=== PATIENT | female | born 1940 | race African-American/Black ===

== ENCOUNTER 2017-03-20 11:05 | Emergency (ER) | payer MEDICARE ==
[2017-03-20 12:33] VITALS: BP 144/61
--- NOTE | 2017-03-20 13:39 | Emergency Department Report ---
Chief Complaint: Nausea/Vomiting/Diarrhea Stated Complaint: VOMITING Time Seen by Provider: 03/20/17 13:38 - HPI History of Present Illness: Patient care with her son who is interpreting for her report patient with nausea and vomiting and diarrhea for the last 2 days. Patient primary care doctor is Dr. Lionel Bonilla and last seen 01/04/2017. Patient says she called this morning and Dr. BonillaYale to the emergency room. Patient has a history of diabetes, high blood pressure and acid reflux. She also has a history of high cholesterol and she is on medication. POC blood glucose is 122 she takes metformin twice daily for diabetes. She denies any pain. Denies any urinary burning frequency or urgency. Denies any back pain. She denies any blood in her stool or vomiting blood. - ROS Review of Systems: All systems are negative unless stated in HPI above - Exam Vital Signs: Vital Signs 03/20/17 12:30 Temperature 98.2 F Pulse Rate 62 Respiratory 18 Rate Blood Pressure 144/61 O2 Sat by Pulse 96 Oximetry Physical Exam: Gen.: This is a 76-year-old female well-nourished well-developed in no acute distress. He is nontoxic in appearance. Abdomen: Nontender to palpate in all quadrants, no guarding or rebound. No peritoneal signs. Normal bowel sounds in all quadrants. No CVA tenderness bilaterally MSE screening note: Focused history and physical exam performed. Due to findings the following was ordered:See MDM ED Medical Decision Making - Medical Decision Making MDM: Patient screened by provider in triage area. Appropriate protocol initiated and patient to be seen in main ED by Provider ED Disposition for MSE Condition: Stable Referrals: LIONEL BONILLA MD [Primary Care Provider] - 3-5 Days
[2017-03-20 14:33] LABS: Basophils % (Auto) 0.6 % (0.0-1.8); Hematocrit 39.8 % (30.3-42.9); Hemoglobin 13.1 gm/dl (10.1-14.3); Mean Corpuscular HGB Conc 33 % (30-34); Mean Corpuscular Hemoglobin 31 pg (28-32); Mean Corpuscular Volume 94 fl (79-97); Platelet Count 183 K/mm3 (140-440); Red Blood Count 4.24 M/mm3 (3.65-5.03); Red Cell Distribution Width 13.5 % (13.2-15.2); White Blood Count 3.6 K/mm3 (4.5-11.0)
[2017-03-20 15:04] LABS: Alanine Aminotransferase 19 units/L (7-56); Albumin 4.4 g/dL (3.9-5); Albumin/Globulin Ratio 1.2 %; Alkaline Phosphatase 78 units/L (35-129); Anion Gap 19 mmol/L; Blood Urea Nitrogen 9 mg/dL (7-17); Calcium 9.2 mg/dL (8.4-10.2); Carbon Dioxide 23 mmol/L (22-30); Chloride 94.1 mmol/L (98-107); Glucose 112 mg/dL (65-100); Lipase 31 units/L (13-60); Potassium 3.5 mmol/L (3.6-5.0); Sodium 133 mmol/L (137-145); Total Protein 8.2 g/dL (6.3-8.2)
[2017-03-20 15:16] LABS: Bacteria,Urine 1+ /HPF (Negative); Bilirubin,Urine NEG (Negative); Blood,Urine NEG (Negative); Ketones,Urine TR mg/dL (Negative); Leukocyte Esterase,Urine NEG (Negative); Mucus,Urine 1+ /HPF; Nitrite,Urine NEG (Negative); Urobilinogen,Urine < 2.0 mg/dL (<2.0); WBC,Urine < 1.0 /HPF (0.0-6.0)
== END 2017-03-20 18:40 | disposition left against medical advice (07) ==
LOC: ED 11:05
DX: R11.2 Nausea with vomiting, unspecified (principal); R19.7 Diarrhea, unspecified; Z53.21 Procedure and treatment not carried out due to patient leaving prior to being seen by health care provider
CPT/HCPCS: 36415; 80053; 81001; 82962; 83690; 85025

== ENCOUNTER 2018-11-22 13:31 | Inpatient (IN) | payer MEDICARE ==
[2018-11-22 14:21] LABS: Basophils # (Auto) 0.1 K/mm3 (0.0-0.1); Basophils % (Auto) 0.5 % (0.0-1.8); Eosinophils % (Auto) 0.1 % (0.0-4.3); Hemoglobin 14.1 gm/dl (10.1-14.3); Lymphocytes # (Auto) 0.9 K/mm3 (1.2-5.4); Lymphocytes % (Auto) 8.7 % (13.4-35.0); Mean Corpuscular HGB Conc 34 % (30-34); Mean Corpuscular Volume 94 fl (79-97); Monocytes # (Auto) 0.9 K/mm3 (0.0-0.8); Monocytes % (Auto) 8.8 % (0.0-7.3); Platelet Count 247 K/mm3 (140-440); Red Blood Count 4.37 M/mm3 (3.65-5.03); Red Cell Distribution Width 14.9 % (13.2-15.2)
[2018-11-22 14:33] LABS: BUN/Creatinine Ratio 16; Blood Urea Nitrogen 8 mg/dL (7-17); Calcium 9.1 mg/dL (8.4-10.2); Hemolysis Index 32
[2018-11-22 14:35] LABS: INR 0.88 (0.87-1.13)
--- NOTE | 2018-11-22 14:47 | Emergency Department Report ---
HPI - General Chief Complaint: Altered Mental Status Time Seen by Provider: 11/22/18 14:35 - HPI HPI: Room 22 The patient is a 78-year-old female presenting with chief complaint vomiting and fatigue. Family states today at noon the patient began exhibiting nausea vomiting complaining of fatigue. Family states patient also began complaining of shortness of breath. Family called EMS for transport to the ED for evaluation. Of note the patient recently flew back from [place] 2 days ago. The patient does not answer questions or follow commands even when spoken to in Turkish by family. Location: [See above] Duration: [See above] Quality: [See above] Severity: [See above] Modifying factors: [see above] Context: [see above] Mode of transportation: [not driving] ED Past Medical Hx - Past Medical History Previous Medical History?: Yes Hx Hypertension: Yes Hx Diabetes: Yes Hx GERD: Yes Additional medical history: high cholesterol - Surgical History Past Surgical History?: No - Family History Family history: no significant - Social History Smoking Status: Never Smoker Substance Use Type: None - Medications Home Medications: Home Medications Medication Instructions Recorded Confirmed Last Taken Type Atorvastatin Calcium [Lipitor] 20 mg PO DAILY 03/19/14 03/19/14 03/18/14 History Omeprazole [PriLOSEC] 20 mg PO DAILY 03/19/14 03/19/14 03/18/14 History Aspirin [Adult Aspirin] 81 mg PO QDAY 11/22/18 11/22/18 Unknown History Ginkgo Biloba 120 mg PO DAILY 11/22/18 11/22/18 Unknown History Telmisartan 40 mg PO QDAY 11/22/18 11/22/18 Unknown History hydroCHLOROthiazide [Hctz] 12.5 mg PO QAM 11/22/18 11/22/18 Unknown History metFORMIN [Glucophage] 500 mg PO QDAY 11/22/18 11/22/18 Unknown History ED Review of Systems ROS: Stated complaint: AMS Other details as noted in HPI Comment: Unobtainable due to pts medical conditions Physical Exam - Physical Exam Vital Signs: Vital Signs 11/22/18 14:30 Temperature 99.8 F H Pulse Rate 87 Respiratory 22 Rate Blood Pressure 160/67 O2 Sat by Pulse 98 Oximetry Physical Exam: GENERAL: The patient is well-developed well-nourished female lying on stretcher not appearing to be in acute distress. [] HEENT: Normocephalic. Atraumatic. Patient has moist mucous membranes. NECK: Supple. Trachea midline CHEST/LUNGS: Clear to auscultation. There is no respiratory distress noted. HEART/CARDIOVASCULAR: Regular. There is no tachycardia. There is no gallop rub or murmur. ABDOMEN: Abdomen is soft, nontender. Patient has normal bowel sounds. There is no abdominal distention. SKIN: There is no rash. There is no edema. There is no diaphoresis. NEURO: The patient is awake but does not answer questions or follow commands. The patient is not cooperative with neurologic exam. MUSCULOSKELETAL: There is no evidence of acute injury. ED Course Vital Signs 11/22/18 14:30 Temperature 99.8 F H Pulse Rate 87 Respiratory 22 Rate Blood Pressure 160/67 O2 Sat by Pulse 98 Oximetry ED Medical Decision Making - Lab Data Result diagrams: 11/22/18 14:01 11/22/18 14:07 Laboratory Tests 11/22/18 11/22/18 11/22/18 14:01 14:07 14:07 WBC 10.6 RBC 4.37 Hgb 14.1 Hct 41.0 MCV 94 MCH 32 MCHC 34 RDW 14.9 Plt Count 247 Lymph % (Auto) 8.7 L [place] % (Auto) 8.8 H Eos % (Auto) 0.1 Baso % (Auto) 0.5 Lymph # 0.9 L Payne # 0.9 H Eos # 0.0 Baso # 0.1 Seg Neutrophils % 81.9 H Seg Neutrophils # 8.6 H PT 12.5 INR 0.88 APTT 25.0 Thrombin Time D-Dimer Sodium 126 L Potassium 3.5 L Chloride 86.7 L Carbon Dioxide 23 Anion Gap 20 BUN 8 Creatinine 0.5 L Estimated GFR > 60 BUN/Creatinine Ratio 16 Glucose 186 H Calcium 9.1 Troponin T < 0.010 11/22/18 11/22/18 14:07 14:38 WBC RBC Hgb Hct MCV MCH MCHC RDW Plt Count Lymph % (Auto) [place] % (Auto) Eos % (Auto) Baso % (Auto) Lymph # Payne # Eos # Baso # Seg Neutrophils % Seg Neutrophils # PT INR APTT Thrombin Time 17.1 D-Dimer 315.42 H Sodium Potassium Chloride Carbon Dioxide Anion Gap BUN Creatinine Estimated GFR BUN/Creatinine Ratio Glucose Calcium Troponin T - EKG Data -: EKG Interpreted by [place] EKG shows normal: sinus rhythm Rate: normal - EKG Data When compared to previous EKG there are: previous EKG unavailable Interpretation: subendocardial ischemia (ST depression in leads 2, 3, aVF, V4, V5, V6) - Radiology Data Radiology results: report reviewed (CT head, CT chest), image reviewed (CT head, CT chest) [address] [address] Cat Scan Report Signed Patient: DIEGO FIEDLS MR#: [id number] : 1940 Acct:[id number] Age/Sex: 78 / F ADM Date: 11/22/18 Loc: ED Attending Dr: Ordering Physician: REBECCA MORALES MD Date of Service: 11/22/18 Procedure(s): CT head/brain wo con Accession Number(s): [id number] cc: REBECCA MORALES MD CT HEAD WITHOUT CONTRAST: HISTORY: Neurological deficit. TECHNIQUE: Sequential CT images without contrast. FINDINGS: Images obtained show bilateral prominence of the sulci and ventricles. There are no abnormal intra- or extra-axial blood or fluid collections. There are no focal masses or evidence of mass effect. The napoles white matter differentiation appears within normal limits. Regions of periventricular decreased attenuation are consistent with microangiopathic ischemic disease. The posterior fossa structures including the fourth ventricle, cerebellum, and brainstem appear normal. IMPRESSION: Evidence of atrophy and microangiopathic ischemic disease. No acute intracranial process noted. Transcribed By: TTR Dictated By: GÉNESIS LEWIS JR, MD Electronically Au thenticated By: GÉNESIS LEWIS JR, MD Signed Date/Time: 11/22/181446 DD/ 46 TD/TT: 11/22/181446 [address] [address] Cat Scan Report Signed Patient: DIEGO FIELDS MR#: [id number] : 1940 Acct:[id number] Age/Sex: 78 / F ADM Date: 11/22/18 Loc: ED Attending Dr: Ordering Physician: REBECCA MORALES MD Date of Service: 11/22/18 Procedure(s): CT angio chest Accession Number(s): [id number] cc: REBECCA MORALES MD PROCEDURE: CT ANGIO CHEST TECHNIQUE: Computerized tomographic angiography of the chest was performed after the IV injection of iodinated nonionic contrast including image processing. The image data was postprocessed using 2-dimensional multiplanar reformatted (MPR) and 3-dimensional (MIP and/or volume rendered) techniques. Automated exposure control, adjustment of mA and/or kV according to patient size, or iterative reconstruction dose optimization techniques were utilized. CT DOSE LENGTH PRODUCT: 508.8 mGycm HISTORY: shortness of breath COMPARISONS: None . FINDINGS: Visualization of fine detail is somewhat limited by motion artifact. There is no evidence of infiltrate, pneumothorax or pleural fluid collection. There is dependent atelectasis in both lung bases. The trachea and bronchi are patent. The heart is enlarged. The thoracic aorta is normal caliber. There is no evidence of intrathoracic adenopathy. No filling defects are demonstrated within the central pulmonary arteries to suggest the presence of central pulmonary artery emboli. However, significant pulmonary artery emboli could be missed due to significant motion artifact. The visualized portion of the upper abdomen is unremarkable. The bony structures are unremarkable. IMPRESSION: 1. Study degraded by motion artifact. 2. No definite evidence of an acute intrathoracic process. 3. No evidence of central pulmonary artery emboli. However, significant pulmonary artery emboli could be missed due to motion artifact. 4. Cardiomegaly. This document is electronically signed by Shannan King MD., Nov 22 2018 04:04:58 PM ET Transcribed By: ED Dictated By: SHANNAN KING MD Electronically Authenticated By: SHANNAN KING MD Signed Date/Time: 11/22/18 1606 DD/ 1554 TD/TT: 1557 - Differential Diagnosis ACS, PE, ICH, altered mental status Critical care attestation.: If time is entered above; I have spent that time in minutes in the direct care of this critically ill patient, excluding procedure time. ED Disposition Clinical Impression: Altered mental status, ST segment depression, Vomiting Disposition: OP ADMIT IP TO THIS HOSP Is pt being admited?: Yes Does the pt Need Aspirin: Yes Condition: Stable Referrals: DEVENDRA BONILLA MD [Primary Care Provider] - 3-5 Days Time of Disposition: 16:25 (hospitalist paged (Dr Paredes))
--- NOTE | 2018-11-22 14:53 | Cat Scan Report ---
CT HEAD WITHOUT CONTRAST: HISTORY: Neurological deficit. TECHNIQUE: Sequential CT images without contrast. FINDINGS: Images obtained show bilateral prominence of the sulci and ventricles. There are no abnormal intra- or extra-axial blood or fluid collections. There are no focal masses or evidence of mass effect. The napoles white matter differentiation appears within normal limits. Regions of periventricular decreased attenuation are consistent with microangiopathic ischemic disease. The posterior fossa structures including the fourth ventricle, cerebellum, and brainstem appear normal. IMPRESSION: Evidence of atrophy and microangiopathic ischemic disease. No acute intracranial process noted.
--- NOTE | 2018-11-22 16:06 | Cat Scan Report ---
PROCEDURE: CT ANGIO CHEST TECHNIQUE: Computerized tomographic angiography of the chest was performed after the IV injection of iodinated nonionic contrast including image processing. The image data was postprocessed using 2-di mensional multiplanar reformatted (MPR) and 3-dimensional (MIP and/or volume rendered) techniques. Au tomated exposure control, adjustment of mA and/or kV according to patient size, or iterative reconstr uction dose optimization techniques were utilized. CT DOSE LENGTH PRODUCT: 508.8 mGycm HISTORY: shortness of breath COMPARISONS: None . FINDINGS: Visualization of fine detail is somewhat limited by motion artifact. There is no evidence of infiltrate, pneumothorax or pleural fluid collection. There is dependent atelectasis in both lung bases. The trachea and bronchi are patent. The heart is enlarged. The thoracic aorta is normal caliber. There is no evidence of intrathoracic adenopathy. No filling defects are demonstrated within the central pulmonary arteries to suggest the presence of central pulmonary artery emboli. However, significant pulmonary artery emboli could be missed due to significant motion artifact. The visualized portion of the upper abdomen is unremarkable. The bony structures are unremarkable. IMPRESSION: 1. Study degraded by motion artifact. 2. No definite evidence of an acute intrathoracic process. 3. No evidence of central pulmonary artery emboli. However, significant pulmonary artery emboli could be missed due to motion artifact. 4. Cardiomegaly. This document is electronically signed by Shannan King MD., Nov 22 2018 04:04:58 PM ET
[2018-11-22] MEDS ORDERED: ASPIRIN PO ONE (16:24)
--- NOTE | 2018-11-22 17:28 | History and Physical Report ---
History of Present Illness Date of examination: 11/22/18 Medications and Allergies Allergies Allergy/AdvReac Type Severity Reaction Status Date / Time No Known Allergies Allergy Verified 03/19/14 07:32 Home Medications Medication Instructions Recorded Confirmed Last Taken Type Atorvastatin Calcium [Lipitor] 20 mg PO DAILY 03/19/14 11/22/18 03/18/14 History Omeprazole [PriLOSEC] 20 mg PO BID 03/19/14 11/22/18 03/18/14 History Aspirin [Adult Aspirin] 81 mg PO QDAY 11/22/18 11/22/18 Unknown History Ginkgo Biloba 120 mg PO DAILY 11/22/18 11/22/18 Unknown History Telmisartan 40 mg PO QDAY 11/22/18 11/22/18 Unknown History hydroCHLOROthiazide [Hctz] 12.5 mg PO QAM 11/22/18 11/22/18 Unknown History metFORMIN [Glucophage] 500 mg PO QDAY 11/22/18 11/22/18 Unknown History Exam - Constitutional Vitals: Temp Pulse Resp BP Pulse Ox 99.8 F H 72 18 180/76 100 11/22/18 14:30 11/22/18 16:40 11/22/18 16:40 11/22/18 16:40 11/22/18 16:40 Results - Labs CBC & Chem 7: 11/22/18 14:01 11/22/18 14:07 Labs: Laboratory Last Values WBC 10.6 K/mm3 (4.5-11.0) 11/22/18 14:01 RBC 4.37 M/mm3 (3.65-5.03) 11/22/18 14:01 Hgb 14.1 gm/dl (10.1-14.3) 11/22/18 14:01 Hct 41.0 % (30.3-42.9) 11/22/18 14:01 MCV 94 fl (79-97) 11/22/18 14:01 MCH 32 pg (28-32) 11/22/18 14:01 MCHC 34 % (30-34) 11/22/18 14:01 RDW 14.9 % (13.2-15.2) 11/22/18 14:01 Plt Count 247 K/mm3 (140-440) 11/22/18 14:01 Lymph % (Auto) 8.7 % (13.4-35.0) L 11/22/18 14:01 [place] % (Auto) 8.8 % (0.0-7.3) H 11/22/18 14:01 Eos % (Auto) 0.1 % (0.0-4.3) 11/22/18 14:01 Baso % (Auto) 0.5 % (0.0-1.8) 11/22/18 14:01 Lymph # 0.9 K/mm3 (1.2-5.4) L 11/22/18 14:01 [place] # 0.9 K/mm3 (0.0-0.8) H 11/22/18 14:01 Eos # 0.0 K/mm3 (0.0-0.4) 11/22/18 14:01 Baso # 0.1 K/mm3 (0.0-0.1) 11/22/18 14:01 Seg Neutrophils % 81.9 % (40.0-70.0) H 11/22/18 14:01 Seg Neutrophils # 8.6 K/mm3 (1.8-7.7) H 11/22/18 14:01 PT 12.5 Sec. (12.2-14.9) 11/22/18 14:07 INR 0.88 (0.87-1.13) 11/22/18 14:07 APTT 25.0 Sec. (24.2-36.6) 11/22/18 14:07 17.1 Sec. (15.1-19.6) 11/22/18 14:07 315.42 ng/mlDDU (0-234) H 11/22/18 14:38 Sodium 126 mmol/L (137-145) L 11/22/18 14:07 Potassium 3.5 mmol/L (3.6-5.0) L 11/22/18 14:07 Chloride 86.7 mmol/L (98-107) L 11/22/18 14:07 Carbon Dioxide 23 mmol/L (22-30) 11/22/18 14:07 20 mmol/L 11/22/18 14:07 BUN 8 mg/dL (7-17) 11/22/18 14:07 0.5 mg/dL (0.7-1.2) L 11/22/18 14:07 Estimated GFR > 60 ml/min 11/22/18 14:07 16 % 11/22/18 14:07 Glucose 186 mg/dL (65-100) H 11/22/18 14:07 Calcium 9.1 mg/dL (8.4-10.2) 11/22/18 14:07 < 0.010 ng/mL (0.00-0.029) 11/22/18 14:07
[2018-11-22] MEDS ORDERED: SODIUM CHLORIDE FLUSH SYRINGE 10 ML IV PRN (17:31)
[2018-11-22] MEDS ORDERED: ZOFRAN IV PRN (17:31)
[2018-11-22 19:05] LABS: Bilirubin,Urine NEG (Negative); Blood,Urine NEG (Negative); Color,Urine Yellow (Yellow); Mucus,Urine FEW /HPF; Protein,Urine <15 mg/dL mg/dL (Negative); Urobilinogen,Urine < 2.0 mg/dL (<2.0)
[2018-11-22] MEDS: NACL 0.9% 1000 ML 1,000 ML IV SCH (19:30)
--- NOTE | 2018-11-23 00:07 | Event Note ---
Date: 11/22/18 See H/pinreports Dehydration AMS
[2018-11-23] MEDS: SODIUM CHLORIDE FLUSH SYRINGE 10 ML IV SCH ×3 (00:30→22:51)
--- NOTE | 2018-11-23 00:44 | History and Physical Report ---
CHIEF COMPLAINT: 1. Altered mental status. 2. Vomiting. HISTORY OF PRESENT ILLNESS: A 78-year-old brought in by the grandson because of vomiting x 2 in the morning. Increasing fatigue. Also, increasing confusion. As per the grandson, the patient apparently dehydrated and not eating. No fever or chills. Unable to give much history. PAST MEDICAL HISTORY: Significant for hypertension, diabetes, GERD, and high cholesterol. PAST SURGICAL HISTORY: None. FAMILY HISTORY: Hypertension. SOCIAL HISTORY: Does not smoke. No alcohol, no recreational drugs. CURRENT MEDICATIONS: Atorvastatin 20 mg once a day, Prilosec 20 mg once a day, aspirin 81 mg once a day, ginkgo biloba 120 mg once a day, telmisartan 40 mg once a day, hydrochlorothiazide 12.5 once a day, metformin 500 once a day. REVIEW OF SYSTEMS: Significant for vomiting x 2 and not eating and poor p.o. intake. Also, altered sensorium. Otherwise, 14-point review of systems is negative. PHYSICAL EXAMINATION: GENERAL: Elderly female, looks dehydrated. VITAL SIGNS: Blood pressure is 120/61, temperature is 98.5, pulse is 82, respiratory rate 17, sats 100%. HEENT: Dry mucous membranes, dry tongue. NECK: Supple, no lymphadenopathy, no thyromegaly. LUNGS: Clear to auscultation and percussion. Good air entry. CARDIOVASCULAR: S1, S2 heard. No gallop, no murmur, no rub. Apical impulse in left fifth intercostal space and midclavicular line. ABDOMEN: Soft and benign. No hepatosplenomegaly. No guarding, no rigidity. Hernial orifices are normal. EXTREMITIES: Good pedal pulses. No pedal edema. CENTRAL NERVOUS SYSTEM: Alert, but not oriented. Confused. SKIN: Normal. LABORATORY DATA: White count is 10,600, H and H is 14.1 and 41.0, platelet count is 247,000. Protime is 12.5, INR is 0.88. Sodium is 126, potassium is 3.5, chloride is 86.7, BUN and creatinine is 8 and 0.5, glucose is 186. A1c is 6.3. Urine specific gravity is 1.040. Head CT and chest CTA are normal. Evidence of atrophy on the head CT. Microangiopathic ischemic disease. Chest CTA was normal. No evidence of pulmonary emboli on CT angiogram of the chest. ASSESSMENT AND PLAN: 1. Acute encephalopathy secondary to dehydration. IV fluids for now. 2. Hyponatremia. IV normal saline for now. 3. Type 2 diabetes, coverage now. 4. Hyperlipidemia. Continue statins. 5. Hypertension. Continue antihypertensives. 6. Gastroesophageal reflux disease. Continue omeprazole. We will hold hydrochlorothiazide. 7. Deep venous thrombosis prophylaxis, Lovenox 40 mg subcutaneous daily. [facility]# [id number] VSM/NTS
[2018-11-23 04:56] LABS: Basophils % (Auto) 0.3 % (0.0-1.8); Hematocrit 36.9 % (30.3-42.9); Hemoglobin 12.7 gm/dl (10.1-14.3); Lymphocytes # (Auto) 0.5 K/mm3 (1.2-5.4); Lymphocytes % (Auto) 8.5 % (13.4-35.0); Mean Corpuscular HGB Conc 34 % (30-34); Mean Corpuscular Volume 92 fl (79-97); Monocytes # (Auto) 0.4 K/mm3 (0.0-0.8); Monocytes % (Auto) 6.7 % (0.0-7.3); Platelet Count 208 K/mm3 (140-440); Red Blood Count 4.01 M/mm3 (3.65-5.03); Red Cell Distribution Width 14.4 % (13.2-15.2)
[2018-11-23 05:15] LABS: Alanine Aminotransferase 24 units/L (7-56); Albumin 3.4 g/dL (3.9-5); BUN/Creatinine Ratio 26; Blood Urea Nitrogen 13 mg/dL (7-17); Calcium 7.9 mg/dL (8.4-10.2); Hemolysis Index 4
[2018-11-23] MEDS: HumaLOG SUB-Q SCH ×4 (09:41→23:03)
[2018-11-23] MEDS: HALFPRIN EC PO SCH (09:41)
[2018-11-23] MEDS: PROTONIX PO SCH ×2 (09:42→22:49)
[2018-11-23] MEDS: TYLENOL PO PRN ×2 (09:42→20:10)
[2018-11-23] MEDS: COZAAR PO SCH (09:42)
[2018-11-23] MEDS ORDERED: NON-FORMULARY (Telmisartan [Telmisartan] 40 MG) PO SCH (10:00)
[2018-11-23] MEDS ORDERED: NON-FORMULARY (Omeprazole [Prilosec] 20 MG) PO SCH (10:00)
[2018-11-23] MEDS ORDERED: K-DUR PO ONE (11:15)
--- NOTE | 2018-11-23 11:24 | Progress Note ---
Assessment and Plan Assessment and plan: --Hypokalemia: oral Kcl, monitor levels --Febrile illness; MAXIMUM TEMPERATURE 101f blood and urine cultures, , Empiric antibiotics as Patient was admitted with altered level of consciousness Rule out sepsis --Metabolic encephalopathy; supportive care --Hyponatremia; present on admission, very minimal improvement Freewater restriction, replacement therapy with KCl, monitor electrolytes --2 diabetes mellitus; moderate control Accu-Chek sliding scale coverage ADA diet oral hypoglycemics HbA1c 6.3. Hold metformin in view of conyrast study done yesterday --Hypertension; continue current antihypertensives and when necessary medications, And closely monitor --Dyslipidemia; and statin --Moderate malnutrition/hypoalbuminemia; nutrition supplements Supportive care --DVT prophylaxis; Lovenox Monitor closely and adjust management as needed Plan of care reviewed with the patient through a bilingual family member History Interval history: Patient seen and examined medical records reviewed Admitted with altered level of consciousness The patient is more alert and awake and responding appropriately to the family Denies chest pain, Vital signs noted Hospitalist Physical - Constitutional Vitals: Temp Pulse Resp BP Pulse Ox 101.4 F H 72 18 155/69 96 11/23/18 08:41 11/23/18 07:27 11/23/18 08:41 11/23/18 08:41 11/23/18 04:19 General appearance: Present: no acute distress, well-nourished - EENT Eyes: Present: PERRL, EOM intact - Neck Neck: Present: supple, normal ROM - Respiratory Respiratory effort: normal Respiratory: bilateral: diminished, negative: rales, rhonchi, wheezing - Cardiovascular Rhythm: regular Heart Sounds: Present: S1 & S2 - Extremities Extremities: no ischemia, No edema - Abdominal General gastrointestinal: soft, non-tender, non-distended, normal bowel sounds - Integumentary Integumentary: Present: clear, warm - Psychiatric Psychiatric: appropriate mood/affect, cooperative - Neurologic Neurologic: CNII-XII intact, moves all extremities Results - Labs CBC & Chem 7: 11/23/18 04:34 11/23/18 04:34 Labs: Laboratory Last Values WBC 6.4 K/mm3 (4.5-11.0) 11/23/18 04:34 RBC 4.01 M/mm3 (3.65-5.03) 11/23/18 04:34 Hgb 12.7 gm/dl (10.1-14.3) 11/23/18 04:34 Hct 36.9 % (30.3-42.9) 11/23/18 04:34 MCV 92 fl (79-97) 11/23/18 04:34 MCH 32 pg (28-32) 11/23/18 04:34 MCHC 34 % (30-34) 11/23/18 04:34 RDW 14.4 % (13.2-15.2) 11/23/18 04:34 Plt Count 208 K/mm3 (140-440) 11/23/18 04:34 Lymph % (Auto) 8.5 % (13.4-35.0) L 11/23/18 04:34 [place] % (Auto) 6.7 % (0.0-7.3) 11/23/18 04:34 Eos % (Auto) 0.0 % (0.0-4.3) 11/23/18 04:34 Baso % (Auto) 0.3 % (0.0-1.8) 11/23/18 04:34 Lymph # 0.5 K/mm3 (1.2-5.4) L 11/23/18 04:34 [place] # 0.4 K/mm3 (0.0-0.8) 11/23/18 04:34 Eos # 0.0 K/mm3 (0.0-0.4) 11/23/18 04:34 Baso # 0.0 K/mm3 (0.0-0.1) 11/23/18 04:34 Seg Neutrophils % 84.5 % (40.0-70.0) H 11/23/18 04:34 Seg Neutrophils # 5.4 K/mm3 (1.8-7.7) 11/23/18 04:34 PT 12.5 Sec. (12.2-14.9) 11/22/18 14:07 INR 0.88 (0.87-1.13) 11/22/18 14:07 APTT 25.0 Sec. (24.2-36.6) 11/22/18 14:07 17.1 Sec. (15.1-19.6) 11/22/18 14:07 315.42 ng/mlDDU (0-234) H 11/22/18 14:38 Sodium 128 mmol/L (137-145) L 11/23/18 04:34 Potassium 3.2 mmol/L (3.6-5.0) L 11/23/18 04:34 Chloride 91.4 mmol/L (98-107) L 11/23/18 04:34 Carbon Dioxide 22 mmol/L (22-30) 11/23/18 04:34 18 mmol/L 11/23/18 04:34 BUN 13 mg/dL (7-17) 11/23/18 04:34 0.5 mg/dL (0.7-1.2) L 11/23/18 04:34 Estimated GFR > 60 ml/min 11/23/18 04:34 26 % 11/23/18 04:34 Glucose 177 mg/dL (65-100) H 11/23/18 04:34 POC Glucose 140 (70-105) H 11/23/18 07:46 6.3 % (4-6) H 11/22/18 14:01 282 Mosm/kg 11/22/18 17:54 Calcium 7.9 mg/dL (8.4-10.2) L 11/23/18 04:34 0.70 mg/dL (0.1-1.2) 11/23/18 04:34 AST 31 units/L (5-40) 11/23/18 04:34 ALT 24 units/L (7-56) 11/23/18 04:34 54 units/L (35-129) 11/23/18 04:34 < 0.010 ng/mL (0.00-0.029) 11/22/18 14:07 6.5 g/dL (6.3-8.2) 11/23/18 04:34 3.4 g/dL (3.9-5) L 11/23/18 04:34 1.1 % 11/23/18 04:34 Yellow (Yellow) 11/22/18 18:21 Clear (Clear) 11/22/18 18:21 6.0 (5.0-7.0) 11/22/18 18:21 Ur Specific [place] 1.040 (1.003-1.030) H 11/22/18 18:21 <15 mg/dl mg/dL (Negative) 11/22/18 18:21 Neg mg/dL (Negative) 11/22/18 18:21 Tr mg/dL (Negative) 11/22/18 18:21 Neg (Negative) 11/22/18 18:21 Neg (Negative) 11/22/18 18:21 Neg (Negative) 11/22/18 18:21 < 2.0 mg/dL (<2.0) 11/22/18 18:21 Ur Leukocyte Esterase Neg (Negative) 11/22/18 18:21 1.0 /HPF (0.0-6.0) 11/22/18 18:21 2.0 /HPF (0.0-6.0) 11/22/18 18:21 Few /HPF 11/22/18 18:21 689 Mosm/kg 11/22/18 18:21 Active Medications - Current Medications Current Medications: Generic Name Dose Route Start Last Admin Trade Name Freq PRN Reason Stop Dose Admin Acetaminophen 650 mg 11/22/18 17:31 11/23/18 09:42 Tylenol PO 650 mg Q4H PRN Administration Pain MILD(1-3)/Fever >100.5/REBOLLEDO Aspirin 81 mg 11/23/18 10:00 11/23/18 09:41 Halfprin Ec PO 81 mg QDAY DEVI Administration Atorvastatin Calcium 20 mg 11/23/18 22:00 Lipitor PO QHS DEVI Sodium Chloride 1,000 mls @ 100 mls/hr 11/22/18 18:00 11/22/18 19:30 Nacl 0.9% 1000 Ml IV 100 mls/hr DIRECT DEVI Administration Insulin Human Lispro 0 unit 11/23/18 07:30 11/23/18 09:41 Humalog SUB-Q Not Given ACHS [facility] Protocol Losartan Potassium 50 mg 11/23/18 10:00 11/23/18 09:42 Cozaar PO 50 mg QDAY DEVI Administration Ondansetron HCl 4 mg 11/22/18 17:31 Zofran IV Q8H PRN Nausea And Vomiting Pantoprazole Sodium 20 mg 11/23/18 10:00 11/23/18 09:42 Protonix PO 20 mg BID DEVI Administration Potassium Chloride 40 meq 11/23/18 11:15 K-Dur PO 11/23/18 11:16 ONCE ONE Sodium Chloride 10 ml 11/22/18 22:00 11/23/18 09:42 Sodium Chloride Flush Syringe 10 Ml IV 10 ml BID DEVI Administration Sodium Chloride 10 ml 11/22/18 17:31 Sodium Chloride Flush Syringe 10 Ml IV PRN PRN LINE FLUSH
[2018-11-23] MEDS ORDERED: LASIX IV ONE (17:56)
[2018-11-23] MEDS: NACL 0.9% 1000 ML 1,000 ML IV SCH (20:09)
[2018-11-24 06:28] LABS: Basophils % (Auto) 0.4 % (0.0-1.8); Hematocrit 36.9 % (30.3-42.9); Hemoglobin 12.7 gm/dl (10.1-14.3); Lymphocytes # (Auto) 0.8 K/mm3 (1.2-5.4); Lymphocytes % (Auto) 22.3 % (13.4-35.0); Mean Corpuscular HGB Conc 34 % (30-34); Mean Corpuscular Volume 93 fl (79-97); Monocytes # (Auto) 0.3 K/mm3 (0.0-0.8); Monocytes % (Auto) 9.8 % (0.0-7.3); Platelet Count 198 K/mm3 (140-440); Red Blood Count 3.96 M/mm3 (3.65-5.03); Red Cell Distribution Width 14.6 % (13.2-15.2)
[2018-11-24 06:50] LABS: BUN/Creatinine Ratio 16; Blood Urea Nitrogen 8 mg/dL (7-17); Calcium 7.9 mg/dL (8.4-10.2); Hemolysis Index 3
[2018-11-24] MEDS: HumaLOG SUB-Q SCH ×4 (08:56→22:23)
[2018-11-24] MEDS: TYLENOL PO PRN (10:11)
[2018-11-24] MEDS: HALFPRIN EC PO SCH (10:11)
[2018-11-24] MEDS: PROTONIX PO SCH ×2 (10:11→21:36)
[2018-11-24] MEDS: COZAAR PO SCH (10:11)
[2018-11-24] MEDS: SODIUM CHLORIDE FLUSH SYRINGE 10 ML IV SCH ×2 (10:12→21:39)
[2018-11-24] MEDS: NACL 0.9% 1000 ML 1,000 ML IV SCH (10:25)
[2018-11-24] MEDS: ROCEPHIN/NS 1 GM/50 ML 1 GM/50 ML BAG IV SCH (10:41)
--- NOTE | 2018-11-24 12:54 | Progress Note ---
Assessment and Plan Assessment and plan: --Hypokalemia: oral Kcl, monitor levels --Febrile illness; low-grade fever today blood and urine cultures,Empiric antibiotics and follow cultures --Metabolic encephalopathy; supportive care --Hyponatremia; present on admission, very minimal improvement Freewater restriction, replacement therapy with KCl, monitor electrolytes --2 diabetes mellitus; blood sugars in the normal range, A1c 6.3 Patient did not need any coverage, will hold oral hypoglycemics Check with primary care physician upon discharge . Accu-Chek sliding scale coverage ADA diet --Hypertension; continue current antihypertensives and when necessary medications, And closely monitor --Dyslipidemia; and statin --Moderate malnutrition/hypoalbuminemia; nutrition supplements Supportive care --DVT prophylaxis; Lovenox Ambulate as tolerated Monitor closely and adjust management as needed Plan of care reviewed with the patient through a bilingual family member Possible discharge in 1-2 days if stable History Interval history: Communication through the bilingual family member at the bedside Patient seen and examined medical records reviewed No new events reported by the nursing Low-grade fever, on empiric antibiotics for possible sepsis Alert and awake not in acute distress Vital signs reviewed Hospitalist Physical - Constitutional Vitals: Temp Pulse Resp BP Pulse Ox 100.2 F H 74 18 154/63 95 11/24/18 07:57 11/24/18 07:57 11/24/18 07:57 11/24/18 10:11 11/24/18 07:57 General appearance: Present: no acute distress, well-nourished - EENT Eyes: Present: PERRL, EOM intact - Neck Neck: Present: supple, normal ROM - Respiratory Respiratory effort: normal Respiratory: negative: rales, rhonchi, wheezing - Cardiovascular Rhythm: regular Heart Sounds: Present: S1 & S2 - Extremities Extremities: no ischemia, No edema - Abdominal General gastrointestinal: soft, non-tender, non-distended, normal bowel sounds - Integumentary Integumentary: Present: clear, warm - Psychiatric Psychiatric: appropriate mood/affect, cooperative - Neurologic Neurologic: CNII-XII intact, moves all extremities Results - Labs CBC & Chem 7: 11/24/18 05:19 11/24/18 05:19 Labs: Laboratory Last Values WBC 3.4 K/mm3 (4.5-11.0) L 11/24/18 05:19 RBC 3.96 M/mm3 (3.65-5.03) 11/24/18 05:19 Hgb 12.7 gm/dl (10.1-14.3) 11/24/18 05:19 Hct 36.9 % (30.3-42.9) 11/24/18 05:19 MCV 93 fl (79-97) 11/24/18 05:19 MCH 32 pg (28-32) 11/24/18 05:19 MCHC 34 % (30-34) 11/24/18 05:19 RDW 14.6 % (13.2-15.2) 11/24/18 05:19 Plt Count 198 K/mm3 (140-440) 11/24/18 05:19 Lymph % (Auto) 22.3 % (13.4-35.0) 11/24/18 05:19 [place] % (Auto) 9.8 % (0.0-7.3) H 11/24/18 05:19 Eos % (Auto) 0.0 % (0.0-4.3) 11/24/18 05:19 Baso % (Auto) 0.4 % (0.0-1.8) 11/24/18 05:19 Lymph # 0.8 K/mm3 (1.2-5.4) L 11/24/18 05:19 [place] # 0.3 K/mm3 (0.0-0.8) 11/24/18 05:19 Eos # 0.0 K/mm3 (0.0-0.4) 11/24/18 05:19 Baso # 0.0 K/mm3 (0.0-0.1) 11/24/18 05:19 Seg Neutrophils % 67.5 % (40.0-70.0) 11/24/18 05:19 Seg Neutrophils # 2.3 K/mm3 (1.8-7.7) 11/24/18 05:19 PT 12.5 Sec. (12.2-14.9) 11/22/18 14:07 INR 0.88 (0.87-1.13) 11/22/18 14:07 APTT 25.0 Sec. (24.2-36.6) 11/22/18 14:07 17.1 Sec. (15.1-19.6) 11/22/18 14:07 315.42 ng/mlDDU (0-234) H 11/22/18 14:38 Sodium 135 mmol/L (137-145) L D 11/24/18 05:19 Potassium 3.3 mmol/L (3.6-5.0) L 11/24/18 05:19 Chloride 98.8 mmol/L (98-107) 11/24/18 05:19 Carbon Dioxide 22 mmol/L (22-30) 11/24/18 05:19 18 mmol/L 11/24/18 05:19 BUN 8 mg/dL (7-17) 11/24/18 05:19 0.5 mg/dL (0.7-1.2) L 11/24/18 05:19 Estimated GFR > 60 ml/min 11/24/18 05:19 16 % 11/24/18 05:19 Glucose 116 mg/dL (65-100) H 11/24/18 05:19 POC Glucose 139 (70-105) H 11/24/18 11:35 6.3 % (4-6) H 11/22/18 14:01 282 Mosm/kg 11/22/18 17:54 Calcium 7.9 mg/dL (8.4-10.2) L 11/24/18 05:19 Magnesium 2.00 mg/dL (1.7-2.3) 11/24/18 05:19 0.70 mg/dL (0.1-1.2) 11/23/18 04:34 AST 31 units/L (5-40) 11/23/18 04:34 ALT 24 units/L (7-56) 11/23/18 04:34 54 units/L (35-129) 11/23/18 04:34 < 0.010 ng/mL (0.00-0.029) 11/22/18 14:07 6.5 g/dL (6.3-8.2) 11/23/18 04:34 3.4 g/dL (3.9-5) L 11/23/18 04:34 1.1 % 11/23/18 04:34 Yellow (Yellow) 11/22/18 18:21 Clear (Clear) 11/22/18 18:21 6.0 (5.0-7.0) 11/22/18 18:21 Ur Specific [place] 1.040 (1.003-1.030) H 11/22/18 18:21 <15 mg/dl mg/dL (Negative) 11/22/18 18:21 Neg mg/dL (Negative) 11/22/18 18:21 Tr mg/dL (Negative) 11/22/18 18:21 Neg (Negative) 11/22/18 18:21 Neg (Negative) 11/22/18 18:21 Neg (Negative) 11/22/18 18:21 < 2.0 mg/dL (<2.0) 11/22/18 18:21 Ur Leukocyte Esterase Neg (Negative) 11/22/18 18:21 1.0 /HPF (0.0-6.0) 11/22/18 18:21 2.0 /HPF (0.0-6.0) 11/22/18 18:21 Few /HPF 11/22/18 18:21 689 Mosm/kg 11/22/18 18:21 Active Medications - Current Medications Current Medications: Generic Name Dose Route Start Last Admin Trade Name Freq PRN Reason Stop Dose Admin Acetaminophen 650 mg 11/22/18 17:31 11/24/18 10:11 Tylenol PO 650 mg Q4H PRN Administration Pain MILD(1-3)/Fever >100.5/REBOLLEDO Aspirin 81 mg 11/23/18 10:00 11/24/18 10:11 Halfprin Ec PO 81 mg QDAY DEVI Administration Atorvastatin Calcium 20 mg 11/23/18 22:00 11/23/18 22:50 Lipitor PO 20 mg QHS DEVI Administration Sodium Chloride 1,000 mls @ 75 mls/hr 11/22/18 18:00 11/24/18 10:25 Nacl 0.9% 1000 Ml IV 100 mls/hr DIRECT DEVI Administration Ceftriaxone Sodium 1 gm in 50 mls @ 100 mls/hr 11/24/18 10:00 11/24/18 10:41 Rocephin/Ns 1 Gm/50 Ml IV 100 mls/hr Q24HR DEVI Administration Protocol Insulin Human Lispro 0 unit 11/23/18 07:30 11/24/18 08:56 Humalog SUB-Q Not Given ACHS DEVI Protocol Losartan Potassium 50 mg 11/23/18 10:00 11/24/18 10:11 Cozaar PO 50 mg QDAY DEVI Administration Ondansetron HCl 4 mg 11/22/18 17:31 Zofran IV Q8H PRN Nausea And Vomiting Pantoprazole Sodium 20 mg 11/23/18 10:00 11/24/18 10:11 Protonix PO 20 mg BID DEVI Administration Sodium Chloride 10 ml 11/22/18 22:00 11/24/18 10:12 Sodium Chloride Flush Syringe 10 Ml IV 10 ml BID DEVI Administration Sodium Chloride 10 ml 11/22/18 17:31 Sodium Chloride Flush Syringe 10 Ml IV PRN PRN LINE FLUSH
[2018-11-24] MEDS ORDERED: LASIX IV ONE (17:00)
[2018-11-24] MEDS ORDERED: LOVENOX SUB-Q SCH ×2 (22:00)
[2018-11-25 06:43] LABS: BUN/Creatinine Ratio 18; Blood Urea Nitrogen 7 mg/dL (7-17); Calcium 8.1 mg/dL (8.4-10.2); Hemolysis Index 2
[2018-11-25] MEDS: HumaLOG SUB-Q SCH ×2 (08:54→17:03)
[2018-11-25] MEDS ORDERED: K-DUR PO ONE (09:27)
--- NOTE | 2018-11-25 09:44 | Progress Note ---
Assessment and Plan Assessment and plan: --Hypokalemia: oral Kcl, monitor levels --Febrile illness; low-grade fever today blood and urine cultures,Empiric antibiotics and follow cultures --Metabolic encephalopathy; supportive care --Hyponatremia; present on admission, very minimal improvement Freewater restriction, replacement therapy with KCl, monitor electrolytes --2 diabetes mellitus; blood sugars in the normal range, A1c 6.3 Patient did not need any coverage, will hold oral hypoglycemics Check with primary care physician upon discharge . Accu-Chek sliding scale coverage ADA diet --Hypertension; continue current antihypertensives and when necessary medications, And closely monitor --Dyslipidemia; and statin --Moderate malnutrition/hypoalbuminemia; nutrition supplements Supportive care --DVT prophylaxis; Lovenox Ambulate as tolerated Monitor closely and adjust management as needed Plan of care reviewed with the patient through a bilingual family member Possible discharge in 1-2 days if stable Hospitalist Physical - Constitutional Vitals: Temp Pulse Resp BP Pulse Ox 98.8 F 73 18 174/63 96 11/25/18 07:35 11/25/18 07:35 11/25/18 07:35 11/25/18 07:35 11/25/18 08:30 General appearance: Present: no acute distress, well-nourished Results - Labs CBC & Chem 7: 11/24/18 05:19 11/25/18 05:46 Labs: Laboratory Last Values WBC 3.4 K/mm3 (4.5-11.0) L 11/24/18 05:19 RBC 3.96 M/mm3 (3.65-5.03) 11/24/18 05:19 Hgb 12.7 gm/dl (10.1-14.3) 11/24/18 05:19 Hct 36.9 % (30.3-42.9) 11/24/18 05:19 MCV 93 fl (79-97) 11/24/18 05:19 MCH 32 pg (28-32) 11/24/18 05:19 MCHC 34 % (30-34) 11/24/18 05:19 RDW 14.6 % (13.2-15.2) 11/24/18 05:19 Plt Count 198 K/mm3 (140-440) 11/24/18 05:19 Lymph % (Auto) 22.3 % (13.4-35.0) 11/24/18 05:19 [place] % (Auto) 9.8 % (0.0-7.3) H 11/24/18 05:19 Eos % (Auto) 0.0 % (0.0-4.3) 11/24/18 05:19 Baso % (Auto) 0.4 % (0.0-1.8) 11/24/18 05:19 Lymph # 0.8 K/mm3 (1.2-5.4) L 11/24/18 05:19 [place] # 0.3 K/mm3 (0.0-0.8) 11/24/18 05:19 Eos # 0.0 K/mm3 (0.0-0.4) 11/24/18 05:19 Baso # 0.0 K/mm3 (0.0-0.1) 11/24/18 05:19 Seg Neutrophils % 67.5 % (40.0-70.0) 11/24/18 05:19 Seg Neutrophils # 2.3 K/mm3 (1.8-7.7) 11/24/18 05:19 PT 12.5 Sec. (12.2-14.9) 11/22/18 14:07 INR 0.88 (0.87-1.13) 11/22/18 14:07 APTT 25.0 Sec. (24.2-36.6) 11/22/18 14:07 17.1 Sec. (15.1-19.6) 11/22/18 14:07 315.42 ng/mlDDU (0-234) H 11/22/18 14:38 Sodium 139 mmol/L (137-145) 11/25/18 05:46 Potassium 3.1 mmol/L (3.6-5.0) L 11/25/18 05:46 Chloride 104.7 mmol/L (98-107) 11/25/18 05:46 Carbon Dioxide 23 mmol/L (22-30) 11/25/18 05:46 14 mmol/L 11/25/18 05:46 BUN 7 mg/dL (7-17) 11/25/18 05:46 0.4 mg/dL (0.7-1.2) L 11/25/18 05:46 Estimated GFR > 60 ml/min 11/25/18 05:46 18 % 11/25/18 05:46 Glucose 111 mg/dL (65-100) H 11/25/18 05:46 POC Glucose 106 (70-105) H 11/25/18 07:38 6.3 % (4-6) H 11/22/18 14:01 282 Mosm/kg 11/22/18 17:54 Calcium 8.1 mg/dL (8.4-10.2) L 11/25/18 05:46 Magnesium 1.80 mg/dL (1.7-2.3) 11/25/18 05:46 0.70 mg/dL (0.1-1.2) 11/23/18 04:34 AST 31 units/L (5-40) 11/23/18 04:34 ALT 24 units/L (7-56) 11/23/18 04:34 54 units/L (35-129) 11/23/18 04:34 < 0.010 ng/mL (0.00-0.029) 11/22/18 14:07 6.5 g/dL (6.3-8.2) 11/23/18 04:34 3.4 g/dL (3.9-5) L 11/23/18 04:34 1.1 % 11/23/18 04:34 Yellow (Yellow) 11/22/18 18:21 Clear (Clear) 11/22/18 18:21 6.0 (5.0-7.0) 11/22/18 18:21 Ur Specific [place] 1.040 (1.003-1.030) H 11/22/18 18:21 <15 mg/dl mg/dL (Negative) 11/22/18 18:21 Neg mg/dL (Negative) 11/22/18 18:21 Tr mg/dL (Negative) 11/22/18 18:21 Neg (Negative) 11/22/18 18:21 Neg (Negative) 11/22/18 18:21 Neg (Negative) 11/22/18 18:21 < 2.0 mg/dL (<2.0) 11/22/18 18:21 Ur Leukocyte Esterase Neg (Negative) 11/22/18 18:21 1.0 /HPF (0.0-6.0) 11/22/18 18:21 2.0 /HPF (0.0-6.0) 11/22/18 18:21 Few /HPF 11/22/18 18:21 689 Mosm/kg 11/22/18 18:21 Active Medications - Current Medications Current Medications: Generic Name Dose Route Start Last Admin Trade Name Freq PRN Reason Stop Dose Admin Acetaminophen 650 mg 11/22/18 17:31 11/24/18 10:11 Tylenol PO 650 mg Q4H PRN Administration Pain MILD(1-3)/Fever >100.5/REBOLLEDO Aspirin 81 mg 11/23/18 10:00 11/24/18 10:11 Halfprin Ec PO 81 mg QDAY DEVI Administration Atorvastatin Calcium 20 mg 11/23/18 22:00 11/24/18 21:36 Lipitor PO 20 mg QHS DEVI Administration Enoxaparin Sodium 40 mg 11/24/18 22:00 11/24/18 21:36 Lovenox SUB-Q 40 mg QDAY@2200 DEVI Administration Ceftriaxone Sodium 1 gm in 50 mls @ 100 mls/hr 11/24/18 10:00 11/24/18 10:41 Rocephin/Ns 1 Gm/50 Ml IV 100 mls/hr Q24HR DEVI Administration Protocol Insulin Human Lispro 0 unit 11/23/18 07:30 11/25/18 08:54 Humalog SUB-Q Not Given ACHS DEVI Protocol Losartan Potassium 50 mg 11/23/18 10:00 11/24/18 10:11 Cozaar PO 50 mg QDAY DEVI Administration Ondansetron HCl 4 mg 11/22/18 17:31 Zofran IV Q8H PRN Nausea And Vomiting Pantoprazole Sodium 20 mg 11/23/18 10:00 11/24/18 21:36 Protonix PO 20 mg BID DEVI Administration Sodium Chloride 10 ml 11/22/18 22:00 11/24/18 21:39 Sodium Chloride Flush Syringe 10 Ml IV 10 ml BID DEVI Administration Sodium Chloride 10 ml 11/22/18 17:31 Sodium Chloride Flush Syringe 10 Ml IV PRN PRN LINE FLUSH
[2018-11-25] MEDS ORDERED: ATIVAN IV ONE (10:44)
[2018-11-25] MEDS: ROCEPHIN/NS 1 GM/50 ML 1 GM/50 ML BAG IV SCH (11:00)
[2018-11-25] MEDS: HALFPRIN EC PO SCH (11:08)
[2018-11-25] MEDS: COZAAR PO SCH (11:08)
[2018-11-25] MEDS: SODIUM CHLORIDE FLUSH SYRINGE 10 ML IV SCH (11:11)
[2018-11-25] MEDS: PROTONIX PO SCH (11:11)
--- NOTE | 2018-11-25 12:55 | Cat Scan Report ---
CTA CHEST: HISTORY: Evaluate for pulmonary embolus. COMPARISON: 11/22/18. TECHNIQUE: Helical CT in 1.25mm intervals following IV contrast. Pulmonary embolus protocol. Sagittal and coronal reformatted images. Rotational MIP images. FINDINGS: Contrast bolus is satisfactory. No pulmonary embolus is identified. Thyroid gland: Normal. Tracheobronchial tree: Normal. Esophagus: Normal. Heart: Borderline cardiomegaly. Pericardium: Normal. Mediastinum: There are a few borderline mediastinal lymph nodes measuring up to 1.5 cm which are unchanged to previous exam. These are likely reactive in nature. Lung Marcial: Subtle patchy bilateral perihilar and left lower lobe infiltrates are identified. An infectious process is suspected. These are new since the previous exam. Pleural Spaces: Normal. Musculoskeletal: Intact. Mild osteopenia and thoracic spondylosis. IMPRESSION: No evidence for pulmonary embolus. Bilateral perihilar and left lower lobe infiltrates have developed concerning for bronchopneumonia.
[2018-11-25 13:57] VITALS: BP 164/74
--- NOTE | 2018-11-25 14:25 | Vascular Lab Report ---
PROCEDURE: US BILATERAL LOWER EXTREMITY VENOUS DUPLEX DOPPLER TECHNIQUE: Duplex Doppler ultrasound of the BILATERAL common and superficial femoral, popliteal, pos terior tibial and proximal deep femoral and greater saphenous veins was attempted. Ac scale imaging with and without compression, spectral waveform analysis with and without augmentation, and color fl ow Doppler were employed. CPT 77416 HISTORY: Elevated D dimer. Evaluate DVT COMPARISONS: None . FINDINGS: RIGHT LOWER EXTREMITY: Deep Venous Thrombus: None . Superficial Venous Thrombus: None . Venous valvular incompetence: None . Soft tissue abnormality: None . Other: None . LEFT LOWER EXTREMITY: Deep Venous Thrombus: None . Superficial Venous Thrombus: None . Venous valvular incompetence: None . Soft tissue abnormality: None . Other: None . IMPRESSION: No evidence of deep venous thrombosis . This document is electronically signed by David Faith MD., Nov 25 2018 02:22:57 PM ET
--- NOTE | 2018-11-25 15:09 | Discharge Summary ---
Providers - Providers Date of Admission: 11/22/18 16:28 Date of discharge: 11/25/18 Attending physician: JENA WOLFE Primary care physician: DEVENDRA BONILLA Hospitalization Reason for admission: Nausea/vomiting and shortness of breath Condition: Stable Pertinent studies: Head CT CTA chest rpt CTA chest LE doppler Hospital course: 78-year-old female patient was admitted through ER with presenting with vomiting and fatigue as well as shortness of breath.Patient recently flew back from [place] 2 days prior to admission. Initial w/u consistant with hyponatremia managed with water restriction and replacemet therapy. Electrolytes corrected.CTA hest x2 neg for [place] venous doppler neg for DVT. Symptoms significantly improved,vital signs are stable today,Patient has no new complaints Patient is stable at discharge Discharge Diagnosis: --Hypokalemia: oral Kcl, monitor levels --Febrile illness; low-grade fever today blood and urine cultures,Empiric antibiotics and follow cultures --Metabolic encephalopathy; supportive care --Hyponatremia; present on admission, very minimal improvement Freewater restriction, replacement therapy with normal saline, monitor electrolytes --2 diabetes mellitus; blood sugars in the normal range, A1c 6.3 Patient did not need any coverage, will hold oral hypoglycemics Check with primary care physician upon discharge . Accu-Chek sliding scale coverage ADA diet --Hypertension; continue current antihypertensives and when necessary medications, And closely monitor --Dyslipidemia; and statin --Moderate malnutrition/hypoalbuminemia; nutrition supplements Supportive care --DVT prophylaxis; Lovenox Ambulate as tolerated Stable at discharge Disposition: [facility] TO HOME OR SELFCARE Time spent for discharge: 32 min Core Measure Documentation - Palliative Care Palliative Care/ Comfort Measures: Not Applicable - Core Measures Any of the following diagnoses?: none Exam - Constitutional Vitals: Temp Pulse Resp BP Pulse Ox 99.7 F H 84 18 164/74 92 11/25/18 13:15 11/25/18 13:15 11/25/18 13:15 11/25/18 13:15 11/25/18 13:15 General appearance: Present: no acute distress, well-nourished - EENT Eyes: Present: PERRL, EOM intact - Neck Neck: Present: supple, normal ROM - Respiratory Respiratory effort: normal Respiratory: bilateral: diminished, rhonchi, negative: rales, wheezing - Cardiovascular Rhythm: regular Heart Sounds: Present: S1 & S2 - Extremities Extremities: no ischemia, No edema - Abdominal General gastrointestinal: Present: soft, non-tender, non-distended, normal bowel sounds - Integumentary Integumentary: Present: clear, warm - Musculoskeletal Musculoskeletal: strength equal bilaterally, generalized weakness - Psychiatric Psychiatric: appropriate mood/affect, cooperative - Neurologic Neurologic: CNII-XII intact, moves all extremities Plan Activity: advance as tolerated, fall precautions Diet: diabetic Additional Instructions: Patient had contrast study today,Hold Metformin, Resume metformin on 11/28/18. Plenty oral fluids. Fall precautions Follow up with: DEVENDRA BONILLA MD [Primary Care Provider] - 3-5 Days Prescriptions: levoFLOXacin [Levaquin TAB] 500 mg PO DAILY #10 tablet Benzonatate [Tessalon Perles] 100 mg PO Q8HR #30 capsule
== END 2018-11-25 18:20 | disposition home or self-care (01) | DRG 640 ==
LOC: ED 13:31 → 4A 16:28 → 2B-ACE 11-23 22:10
PROVIDERS: ADMIT Internal Medicine; ATTEND Internal Medicine
DX: E87.1 Hypo-osmolality and hyponatremia (principal); G93.41 Metabolic encephalopathy; E44.0 Moderate protein-calorie malnutrition; E86.0 Dehydration; I10 Essential (primary) hypertension; E11.9 Type 2 diabetes mellitus without complications; K21.9 Gastro-esophageal reflux disease without esophagitis; R11.10 Vomiting, unspecified; E87.6 Hypokalemia; E87.5 Hyperkalemia; Z68.20 Body mass index [BMI] 20.0-20.9, adult; Z79.82 Long term (current) use of aspirin; Z79.84 Long term (current) use of oral hypoglycemic drugs
CPT/HCPCS: 36415; 70450; 71275; 80048; 80053; 81001; 82962; 83036; 83735; 83930; 83935; 84484; 85025; 85379; 85610; 85670; 85730; 87040; 87086; 93005; 93010; 93970; 96374; G0378; A9270-GY; J0696; J1650; J1815; J1940; J2060; J7030; Q9967